=== PATIENT | female | born 1965 | race African-American/Black ===

== ENCOUNTER 2021-01-14 22:21 | Emergency (ER) | payer BC, OTHER ==
[2021-01-14] MEDS ORDERED: Ondansetron ODT 4 MG TAB ONE (22:38)
[2021-01-14] MEDS ORDERED: Cyclobenzaprine 10 MG TAB ONE (23:40)
== END 2021-01-14 23:47 | disposition home or self-care (01) ==
LOC: NAV ERS 22:21
DX: S16.1XXA Strain of muscle, fascia and tendon at neck level, initial encounter (principal); R51.9 Headache, unspecified; R11.0 Nausea; V43.52XA Car driver injured in collision with other type car in traffic accident, initial encounter; Y92.410 Unspecified street and highway as the place of occurrence of the external cause
CPT/HCPCS: 70450; 72125; Q0162

== ENCOUNTER 2021-10-05 20:38 | Emergency (ER) | payer BC ==
[2021-10-05] MEDS ORDERED: Acetaminophen 500 MG TAB ONE (21:00)
== END 2021-10-05 21:18 | disposition home or self-care (01) ==
LOC: NAV ERS 20:38
DX: K02.9 Dental caries, unspecified (principal)
CPT/HCPCS: 99282